=== PATIENT | male | born 1970 | race Caucasian/White ===

== ENCOUNTER 2018-05-12 17:36 | Emergency (ER) | payer OTHER ==
[~2018-05-12] VITALS: Ht 172.7 cm; Wt 108.9 kg
[2018-05-12 17:39] VITALS: BP 152/93
[2018-05-12] MEDS ORDERED: KETOROLAC 60 MG/2 ML VIAL IM ONE (20:25)
[2018-05-12 20:40] VITALS: BP 149/87
== END 2018-05-12 20:40 | disposition home or self-care (01) ==
LOC: MED 17:36
DX: S90.822A Blister (nonthermal), left foot, initial encounter (principal); F17.210 Nicotine dependence, cigarettes, uncomplicated; X58.XXXA Exposure to other specified factors, initial encounter; Y93.89 Activity, other specified; Y99.8 Other external cause status; Y92.89 Other specified places as the place of occurrence of the external cause
CPT/HCPCS: 73630; 82948; 96372; 99284; J1885